=== PATIENT | female | born 1965 ===

== ENCOUNTER 2018-08-19 11:41 | Emergency (ER) | payer OTHER ==
[2018-08-19 11:42] VITALS: BMI 24.2
[2018-08-19 11:43] VITALS: BP 137/87; PULSE 86; RESP 17; TEMP 98.1; O2SAT 98
--- NOTE | 2018-08-19 11:59 | ED PDOC ---
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 Patient states bleeding lasted for about 20 minutes and resolves spontaneously. She denies any headache, dizziness, vision changes or trauma. Patient does not take any blood thinners. PMD: none Past Medical History Reviewed: Historical Data, Nursing Documentation, Vital Signs Vital Signs: Last Vital Signs Temp 98.1 F 08/19/18 11:42 Pulse 86 08/19/18 11:42 Resp 17 08/19/18 11:42 BP 137/87 08/19/18 11:42 Pulse Ox 98 08/19/18 11:42 - Medical History PMH: No Chronic Diseases - Family History Family History: States: No Known Family Hx - Living Arrangements Living Arrangements: With Family - Social History Current smoker - smoking cessation education provided: No Alcohol: None Drugs: Denies - Home Medications Home Medications: Ambulatory Orders Medication Instructions Recorded Sodium Chloride [[place] Saline] 50 ml NS DAILY #1 bottle 08/19/18 - Allergies Allergies/Adverse Reactions: Allergies Allergy/AdvReac Type Severity Reaction Status Date / Time Penicillins Allergy RASH Verified 08/19/18 11:48 Review of Systems ROS Statement: Except As Marked, All Systems Reviewed And Found Negative Constitutional: Negative for: Fever Eyes: Negative for: Vision Change ENT: Positive for: Other (epistaxis from left nares, now resolved) Cardiovascular: Negative for: Chest Pain Respiratory: Negative for: Cough Gastrointestinal: Negative for: Nausea, Vomiting Neurological: Negative for: Headache, Dizziness Physical Exam - Reviewed Nursing Documentation Reviewed: Yes Vital Signs Reviewed: Yes - Physical Exam Appears: Positive for: Well, Non-toxic, No Acute Distress Skin: Positive for: Normal Color. Negative for: Rash Eye Exam: Positive for: Normal appearance ENT: Positive for: Other (Dry mucous membranes noted to nares bilaterally, no active bleeding noted bilaterally, no septal hematoma, oropharynx is clear) Extremity: Positive for: Normal ROM Neurologic/Psych: Positive for: Alert, Oriented - ECG O2 Sat by Pulse Oximetry: 98 Pulse Ox Interpretation: Normal Medical Decision Making Medical Decision Makin53 y/o with nosebleed, now resolved No active bleeding noted upon arrival, no oozing vessels noted upon arrival. Patient was advised to apply direct pressure to nasal bridge if bleeding starts again. Prescription for nasal saline spray provided. Patient was referred to clinic for follow-up and is aware she can RTED at any time if worse. Patient was offered nasal packing but she declined. Disposition - Clinical Impression Clinical Impression: Nosebleed - Patient ED Disposition Is Patient to be Admitted: No Counseled Patient/Family Regarding: Diagnosis, Need For Followup - Disposition Referrals: [facility] [Outside] Disposition: Routine/Home Disposition Time: 12:22 Condition: STABLE Additional Instructions: Apply pressure to nasal bridge if bleeding starts again. Use rx meds as directed. Follow up with clinic or primary care doctor in 2-3 days. Prescriptions: Sodium Chloride [[place] Saline] 50 ml NS DAILY #1 bottle Instructions: Nosebleeds (DC) Forms: [facility] (English), [facility] ED School/Work Excuse Print Language: BELIZEAN
== END 2018-08-19 12:27 | disposition home or self-care (01) ==
LOC: H.ER 11:41
DX: R04.0 Epistaxis (principal); Z88.0 Allergy status to penicillin

== ENCOUNTER 2018-08-19 12:48 | Emergency (ER) | payer OTHER ==
[2018-08-19 12:48] VITALS: BMI 24.2
--- NOTE | 2018-08-19 13:16 | ED PDOC ---
HPI: General Adult Time Seen by Provider: 08/19/18 13:13 Chief Complaint (Provider): nosebleed History Per: Patient Additional Complaint(s): 53-year-old female presents with persistent nosebleed. Patient seen earlier today and discharge her returns with bleeding from left nares. Active bleeding noted upon arrival. PMD: none Past Medical History Reviewed: Historical Data, Nursing Documentation, Vital Signs - Medical History PMH: No Chronic Diseases - Family History Family History: States: No Known Family Hx - Living Arrangements Living Arrangements: With Family - Social History Current smoker - smoking cessation education provided: No Alcohol: None Drugs: Denies - Home Medications Home Medications: Ambulatory Orders Medication Instructions Recorded Sodium Chloride [[place] Saline] 50 ml NS DAILY #1 bottle 08/19/18 - Allergies Allergies/Adverse Reactions: Allergies Allergy/AdvReac Type Severity Reaction Status Date / Time Penicillins Allergy RASH Verified 08/19/18 11:48 Review of Systems ROS Statement: Except As Marked, All Systems Reviewed And Found Negative ENT: Positive for: Other (bleeding from left nares) Physical Exam - Reviewed Nursing Documentation Reviewed: Yes Vital Signs Reviewed: Yes - Physical Exam Appears: Positive for: Well, Non-toxic, No Acute Distress Skin: Positive for: Normal Color Eye Exam: Positive for: Normal appearance ENT: Positive for: Other (Moderate active bleeding noted from left nares, no septal hematoma) Cardiovascular/Chest: Positive for: Regular Rate, Rhythm Respiratory: Positive for: Normal Breath Sounds Neurologic/Psych: Positive for: Alert, Oriented - ECG Pulse Ox Interpretation: Normal Medical Decision Making Medical Decision Makin:15 pm 53 y/o with nosebleed Procedure Note; pressure was applied to external nasal bridge, bleeding from left nares began to slow down. Upon further examination no wheezing vessels are visualized in nares. Left nares was irrigated of excess blood and clots and 4.5 cm Rhino Rocket was applied to left nares, good bleeding control was achieved, procedure was tolerated well by patient with no immediate complications. Patient was observed in ED for 1 hr, no further bleeding noted, rhino rocket remains in place. Patient was advised to return to ED tomorrow for reevaluation and Rhino Rocket removal. Disposition - Clinical Impression Clinical Impression: Epistaxis - Patient ED Disposition Is Patient to be Admitted: No Counseled Patient/Family Regarding: Diagnosis, Need For Followup - Disposition Referrals: [facility] [Outside] Disposition: Routine/Home Disposition Time: 13:47 Condition: STABLE Additional Instructions: Return to ED tomorrow afternoon for nasal packing removal. Instructions: Nosebleeds (DC) Forms: [facility] (Icelandic) Print Language: YORUBA
[2018-08-19 13:31] VITALS: BP 140/88; PULSE 85; RESP 18
[2018-08-19 15:19] VITALS: O2SAT 100
== END 2018-08-19 15:19 | disposition home or self-care (01) ==
LOC: H.ER 12:48
DX: R04.0 Epistaxis (principal); Z88.0 Allergy status to penicillin

== ENCOUNTER 2018-08-20 13:36 | Emergency (ER) | payer SELFPAY ==
[2018-08-20 13:36] VITALS: BMI 24.2
[2018-08-20 14:42] VITALS: BP 144/84; PULSE 90; RESP 16; TEMP 98.4; O2SAT 100
--- NOTE | 2018-08-20 15:11 | ED PDOC ---
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 Patient states yesterday she had a serve nasal bleeding which stopped when she came to the ER. She was advised the nasal bleeding was due to dryness and prescribed nasal spray. Denies any other complaints. Past Medical History Reviewed: Historical Data, Nursing Documentation, Vital Signs Vital Signs: Last Vital Signs Temp 98.4 F 08/20/18 14:41 Pulse 90 08/20/18 14:41 Resp 16 08/20/18 14:41 BP 144/84 08/20/18 14:41 Pulse Ox 100 08/20/18 14:41 - Medical History PMH: No Chronic Diseases - Family History Family History: States: Unknown Family Hx - Social History Current smoker - smoking cessation education provided: No Alcohol: None Drugs: Denies - Home Medications Home Medications: Ambulatory Orders Medication Instructions Recorded Sodium Chloride [[place] Saline] 50 ml NS DAILY #1 bottle 08/19/18 Sodium Chloride/Aloe Vera [[place] 22 ml NS BID #1 spray 08/20/18 Saline Nasal Gel [facility]] - Allergies Allergies/Adverse Reactions: Allergies Allergy/AdvReac Type Severity Reaction Status Date / Time Penicillins Allergy RASH Verified 08/19/18 11:48 Review of Systems ROS Statement: Except As Marked, All Systems Reviewed And Found Negative Constitutional: Negative for: Fever, Chills ENT: Negative for: Nose Pain, Nose Discharge, Nose Congestion Physical Exam - Reviewed Nursing Documentation Reviewed: Yes Vital Signs Reviewed: Yes - Physical Exam Appears: Positive for: Well, Non-toxic, No Acute Distress Head Exam: Positive for: ATRAUMATIC, NORMAL INSPECTION, NORMOCEPHALIC Skin: Positive for: Normal Color, Warm, Dry Eye Exam: Positive for: EOMI, Normal appearance, PERRL ENT: Positive for: Normal ENT Inspection, Other (packing is clear). Negative for: Sinus Pain/Drainage Neurologic/Psych: Positive for: Alert, Oriented (x3). Negative for: Motor/Sens ory Deficits - ECG O2 Sat by Pulse Oximetry: 100 (RA) Pulse Ox Interpretation: Normal Medical Decision Making Medical Decision Making: Time: 1355 Upon provider evaluation patient is medically stable, and requires no further treatment in the ED at this time. Patient will be discharged home with Aye S amrgy Nasal Gel [facility]. Counseling was provided and all questions were answered regarding diagnosis and need for follow up with Dr. Rosa. There is agreement to discharge plan. Return if symptoms persist or worsen. repet BP: 138/82 Scribe Attestation: Documented by Bere Day, acting as a scribe for Karen Bobby PA-C Provider Scribe Attestation: All medical record entries made by the Scribe were at my direction and personally dictated by me. I have reviewed the chart and agree that the record accurately reflects my personal performance of the history, physical exam, medical decision making, and the department course for this patient. I have also personally directed, reviewed, and agree with the discharge instructions and disposition. Disposition - Clinical Impression Clinical Impression: Nosebleed - Patient ED Disposition Is Patient to be Admitted: No - Disposition Referrals: Jonny Rosa MD [Staff Provider] - Disposition: Routine/Home Disposition Time: 14:42 Condition: STABLE Prescriptions: Sodium Chloride/Aloe Vera [[place] Saline Nasal Gel [facility]] 22 ml NS BID #1 spray Instructions: Nosebleeds Forms: [facility] (Welsh)
== END 2018-08-20 15:22 | disposition home or self-care (01) ==
LOC: H.ER 13:36
DX: R04.0 Epistaxis (principal); Z88.0 Allergy status to penicillin